=== PATIENT | male | born 1950 | race Caucasian/White ===

== ENCOUNTER 2025-03-24 18:40 | Observation (INO) ==
[2025-03-24 19:10] VITALS: BMI 31.3
--- NOTE | 2025-03-24 19:40 | DR.HTN ---
HPI Time Seen Time Seen by Provider: 03/24/25 19:17 Primary Care Physician Primary Care Physician: Fermin Alarcon HPI Comment HPI Comment: Patient was sent to ER by his nurse practitioner due to his elevated blood pressure after getting procedure at retina specialist with laser. Blood pressure already improving on arrival. Patient states he was told he may have a blood clot because he had elevated D-dimer of 0.8. Patient denies shortness of breath, chest pain, dyspnea on exertion. He does have pedal edema chronically that comes and goes. No history of congestive heart failure. Complaints Chief Complaint:: Patient ambulatory in triage with c/o of high blood pressure. Patient reports that he just left the Retina Specialist in [place] where he has been being seen for a previous cataract surgery. He states that he was told today that he had a bleed behind both of his retina in which the specialist took a laser and cauterized both places. Patient reports that blood pressure has been running higher than normal at home(has a b/P log with him) and he also has 4+ pitting edema in the bilateral lower extremeties, which is a new finding for him. Patient reports that Fermin wanted him to come to the ER due to an elevated D-dimer (0.80) on labs that were performed on 03/22/25 to rule out a PE. COVID-19 Coronavirus risk:travel/contact w/high risk person: No Has patient experienced Coronavirus symptoms: No Source History Provided: Patient Mode of Arrival Mode of Arrival: Ambulatory Timing Onset of Chief Complaint: 03/24/25 PMH PMH Past Medical History: Yes Past Medical History: Asthma, Dyslipidemia, GERD, Hypertension and Hypothyroidism Past Medical History Comment: Pneumothorax Past Surgical History: Yes Surgical History: Ortho Surgery, Tonsillectomy and Other Past Surgical History Comment: Left shoulder, umbilical hernia, cataracts Family History History of Family Medical Conditions: Yes Family Medical History: Cancer Social History Does patient currently use any type of tobacco product: No Have you used tobacco products in the last 12 months: No Type of Tobacco Use: None Does any household member use tobacco: No Alcohol Use: None Do you use any recreational Drugs:: No Lives With: Family Lives Where: Home Travel Risk Coronavirus risk:travel/contact w/high risk person: No Has patient experienced Coronavirus symptoms: No Infectious screening In the last 2 months have you had wt loss of >10#?: NO Have you had fever, night sweats or hemotysis?: No Have you traveled outside the country in the last 6 months?: No Isolation: Standard ROS Review of Systems Constitutional: No Symptoms Reported Eyes: No Symptoms Reported ENTM: No Symptoms Reported Respiratoy: No Symptoms Reported; negative Short of Breath or Wheezing Cardiovascular: No Symptoms Reported and Edema; negative Chest Pain, Palpitations or Syncope Gastrointestinal/Abdominal: No Symptoms Reported Genitourinary: No Symptoms Reported Neurological: No Symptoms Reported Musculoskeletal: No Symptoms Reported Integumentary: No Symptoms Reported Hematologic/Lymphatic: No Symptoms Reported Endocrine: No Symptoms Reported Psychiatric: No Symptoms Reported All Other Systems: Reviewed and Negative PE Vital Signs Vitals: Vital Signs Temperature 98.0 F Pulse Rate 69 Pulse Rate 74 Pulse Rate 72 Pulse Rate 74 Pulse Rate 77 Pulse Rate 76 Pulse Rate 76 Pulse Rate 79 Pulse Rate 82 Respiratory Rate 20 Blood Pressure 166/74 Blood Pressure 186/82 Blood Pressure 159/72 Blood Pressure 164/75 Blood Pressure 161/74 O2 Sat by Pulse Oximetry 94 O2 Sat by Pulse Oximetry 93 O2 Sat by Pulse Oximetry 97 O2 Sat by Pulse Oximetry 95 O2 Sat by Pulse Oximetry 95 O2 Sat by Pulse Oximetry 95 O2 Sat by Pulse Oximetry 95 O2 Sat by Pulse Oximetry 94 O2 Sat by Pulse Oximetry 94 General Limitations: No Limitations General Appearance: Alert and In No Apparent Distress Head Head Exam: Normal Inspection Eyes Eye exam: Normal Appearance ENT ENT Exam: Normal Exam Neck Neck Exam: Normal Inspection Chest Chest Inspection: Normal Inspection Respiratory Respiratory Exam: Normal Lung Sounds Bilat Respiratory Exam: Bilateral: Clear to Auscultation Cardiovascular Cardiovascular Exam: Regular Rate and Normal Rhythm Abdominal Exam Abdominal Exam: Normal Inspection, Normal Bowel Sounds and Soft Extremities Extremities Exam: Edema (Bilateral pedal edema 2+ proximal jacques.) Back Back Exam: Normal Inspection Neurologic Neurological Exam: Alert and Oriented X3 Psychiatric Psychiatric Exam: Normal Affect and Normal Mood Skin Skin Exam: Warm, Dry, Intact and Normal Color COURSE Treatment Treatment: Patient's blood pressure continued to improve through ER stay. Repeat D-dimer was slightly elevated, likely due to age, however bilateral lower extremity ultrasounds were performed and found no evidence of DVT. Patient does have a history of a reaction to contrast with an allergy to iodine and as result CTA was refused by radiology. V/Q scan is not available tomorrow. Due to his recent retinal bleeds I feel it is safer to confirm if there is a blood clot even though unlikely before starting anticoagulation. Therefore we are starting prep for the CTA in the morning. Consultation Called: 22:10 Consultation Comments: Discussed case with Dr. Hilton and he is agreeable to admission so patient can have CTA in the morning after receiving prep. ROR Labs Reviewed Laboratory Results Reviewed?: Yes 03/24/25 19:25 03/24/25 19: Laboratory: WBC 7.2 X10^3/uL (3.6-10.0) 03/24/25 19: RBC 5.07 X10^6/uL (4.7-6.0) 03/24/25 19: Hgb 13.9 g/dL (13.5-18.0) 03/24/25: Hct 42.3 % (42.0-54.0) 03/24/25 19: MCV 83.5 fL (80.0-100.0) 03/24/25: MCH 27.3 pg (27.0-34.0) 03/24/25 19: MCHC 32.8 g/dL (33.0-35.0) L 03/24/25 19: RDW 20.7 % (11.6-16.5) H 03/24/25 19: Plt Count 181 X10^3/uL (150.0-450.0) 03/24/25 19: Plt Count Comment Adequate (ADEQUATE) 03/24/25: MPV 8.5 fL (7.4-11.0) 03/24/25 19: Neut % (Auto) 66.6 % (42.0-75.0) 03/24/25 19: Lymph % (Auto) 23.4 % (21.0-51.0) 03/24/25 19: [place] % (Auto) 7.7 % (0.0-13.0) 03/24/25: Eos % (Auto) 0.2 % (0.9-2.9) L 03/24/25 19: Baso % (Auto) 2.1 % (0.2-1.0) H 03/24/25 19:25 Neut # (Auto) 4.8 x10^3/uL (2.2-4.8) 03/24/25 19:25 Lymph # (Auto) 1.7 X10^3/uL (1.3-2.9) 03/24/25 19:25 [place] # (Auto) 0.6 x10^3/uL (0.3-0.8) 03/24/25 19:25 Eos # (Auto) 0.0 x10^3/uL (0.0-0.2) 03/24/25 19:25 Baso # (Auto) 0.2 X10^3/uL (0.0-0.1) H 03/24/25 19:25 Absolute Nucleated RBC 0.1 /100WBC 03/24/25 19:25 Plt Morphology Comment Normal (NORMAL) 03/24/25 19:25 RBC Morphology Abnormal (NORMAL) 03/24/25 19:25 Anisocytosis 1+ A 03/24/25 19:25 Ovalocytes Present 03/24/25 19:25 D-Dimer 0.92 ug/ml (0.0-0.57) H 03/24/25 19:25 Sodium 143 mmol/L (136-145) 03/24/25 19:25 Corrected Sodium 143 mmol/L (136-145) 03/24/25 19:25 Potassium 3.6 mmol/L (3.5-5.1) 03/24/25 19:25 Chloride 106 mmol/L (98-107) 03/24/25 19:25 Carbon Dioxide 32.3 mmol/L (21-32) H 03/24/25 19:25 BUN 7 mg/dL (7-18) 03/24/25 19:25 Creatinine 1.08 mg/dL (0.70-1.30) 03/24/25 19:25 Est GFR (MDRD) Af Amer > 60 (>60) 03/24/25 19:25 Est GFR (MDRD) Non-Af > 60 (>60) 03/24/25 19:25 Glucose 118 mg/dL (65-99) H 03/24/25 19:25 Calcium 8.7 mg/dL (8.5-10.1) 03/24/25 19:25 Corrected Calcium TNP 03/24/25 19:25 Total Bilirubin 1.20 mg/dL (0.2-1.0) H 03/24/25 19:25 AST 19 Units/L (15-37) 03/24/25 19:25 ALT 25 Units/L (12-78) 03/24/25 19:25 Alkaline Phosphatase 48 Units/L (46-116) 03/24/25 19:25 B-Natriuretic Peptide 56.2 pg/mL (0-79) 03/24/25 19:25 Total Protein 7.0 g/dL (6.4-8.2) 03/24/25 19:25 Albumin 3.7 g/dL (3.4-5.0) 03/24/25 19:25 Globulin 3.3 g/dL (2.5-4.5) 03/24/25 19:25 Albumin/Globulin Ratio 1.1 Ratio (1.1-2.1) 03/24/25 19:25 TSH 3rd Generation 1.885 uIU/mL (0.358-3.74) 03/24/25 19:25 Other Results Comments: Name: LANETTE ORTIZ : 1950 Sex: M Location: ER Order Number(s): [id number] Procedure(s):LOWER EXT VENOUS, BILATERAL Ordering Physician: Jose Hammond Primary Care: FERMIN ALARCON Service Date: 03/24/25 Service Time: 1957 EXAM: LOWER EXT VENOUS, BILATERAL HISTORY: pedal edema, elevated d-dimer.; COMPARISON: No relevant prior studies available. TECHNIQUE: Grayscale and color Doppler images of the lower extremities. FINDINGS: Right lower extremity: Common femoral, femoral, popliteal and posterior tibial veins demonstrate normal compressibility, color Doppler flow, waveforms and augmentation with no filling defects. Soft tissues: Unremarkable Left lower extremity: Common femoral, femoral, popliteal and posterior tibial veins demonstrate normal compressibility, color Doppler flow, waveforms and augmentation with no filling defects. Soft tissues:Unremarkable IMPRESSION: No evidence of deep venous thrombus in either lower extremity. THIS IS AN ELECTRONICALLY VERIFIED FINAL REPORT 03/24/2025 9:48 PM - Electronically signed by Baldev Manuel MD Opioid Opioid Risk Tool Age (Dominic box if 16-45): No History of Preadolescent Sexual Abuse: No Total: 0 Total Score Risk Category: Low Risk Copyright: [facility] predicting aberrant behaviors Discharge Plan Diagnosis Discharge Problem: Elevated d-dimer, Pedal edema Discharge Plan Patient Disposition: 09 ADMITTED INPATIENT Condition: Stable Prescriptions: No Action omeprazole 20 mg capsule,delayed release(DR/EC) 20 mg PO QDAY azelastine 137 mcg (0.1 %) spray,non-aerosol 1 spray intranasal BID Rx Instructions: administer into each nostril prednisone 10 mg tablet 10 mg PO DIRECTED Rx Instructions: see taper instructions Proair Digihaler 90 mcg/actuation aero powdr breath act w/sensor 2 inh inhalation Q6H acetazolamide 500 mg capsule, extended release 500 mg PO ONCE lisinopril 10 mg tablet 10 mg PO BID Qty: 180 3RF ipratropium-albuterol 0.5 mg-3 mg(2.5 mg base)/3 mL solution for nebulization 3 ml INHALATION Q6H PRN Patient Comments: [NO ORIGINAL SIG] famotidine 40 mg tablet 40 mg PO QDAY levothyroxine [Synthroid] 50 mcg tablet 50 mcg PO QDAY zafirlukast 20 mg tablet 20 mg PO BID doxazosin 4 mg tablet 4 mg PO BID testosterone cypionate 200 mg/mL oil 200 mg IM WEEKLY budesonide-formoterol [Symbicort] 160-4.5 mcg/actuation HFA aerosol inhaler 1 inh inhalation DAILY Fasenra Pen 30 mg/mL auto-injector 30 mg SUBCUT MONTHLY Patient Comments: [NO ORIGINAL SIG] [place] 30 mg Tablet See Rx Instructions .ROUTE .COMPLEX Rx Instructions: daily fluticasone propionate [Flonase] 50 mcg/actuation [place],Suspension See Rx Instructions .ROUTE .COMPLEX Rx Instructions: as directed Vitamin B-12 50 mcg Lozenge See Rx Instructions .ROUTE .COMPLEX Rx Instructions: as directed ezetimibe 10 mg Tablet See Rx Instructions .ROUTE .COMPLEX Rx Instructions: daily flaxseed oil-omega 3,6,9 1,300 mg-845 mg -117 mg-117 mg Capsule See Rx Instructions .ROUTE .COMPLEX Rx Instructions: as directed Health Concerns: Post Hospitalization: new medications and changes needed to prevent readmission or further decline. Pt educated and given instructions on all concerns. Plan of Treatment: Continue with present treatment and follow up plan. Pt is to keep follow up appointment as instructed and take medications as ordered. Orders to Discharge Patient Discharge Orders: Transfer (Routine); Ordered 03/24/25 Ordered By: Jose Hammond Follow ups/Referrals Follow ups/Referrals: FERMIN ALARCON [Primary Care Provider, MEDICAL] - 3 days Instructions Stand Alone Forms: Find Help Web Site, Post Hospital Follow Up Care Print Language: KAZAKH
[2025-03-24 19:53] LABS: MEAN PLATELET VOLUME 8.5 fL (7.4-11.0); RED CELL DISTRIBUTION WIDTH 20.7 % (11.6-16.5)
[2025-03-24] MEDS: ZESTRIL TAB 10 MG PO ONE (19:53)
[2025-03-24 19:54] LABS: COR NA(FOR HYPERGLY) 143 mmol/L (136-145); CREATININE 1.08 mg/dL (0.70-1.30); TSH (3RD GENERATION) 1.885 uIU/mL (0.358-3.74); eGFR NON BLACK RACES > 60 (>60)
[2025-03-24 19:59] LABS: PLATELET MORPHOLOGY COMMENT NORMAL (NORMAL)
--- NOTE | 2025-03-24 21:51 | VAS ---
EXAM: LOWER EXT VENOUS, BILATERAL HISTORY: pedal edema, elevated d-dimer.; COMPARISON: No relevant prior studies available. TECHNIQUE: Grayscale and color Doppler images of the lower extremities. FINDINGS: Right lower extremity: Common femoral, femoral, popliteal and posterior tibial veins demonstrate normal compressibility, color Doppler flow, waveforms and augmentation with no filling defects. Soft tissues: Unremarkable Left lower extremity: Common femoral, femoral, popliteal and posterior tibial veins demonstrate normal compressibility, color Doppler flow, waveforms and augmentation with no filling defects. Soft tissues:Unremarkable IMPRESSION: No evidence of deep venous thrombus in either lower extremity. THIS IS AN ELECTRONICALLY VERIFIED FINAL REPORT 03/24/2025 9:48 PM - Electronically signed by Baldev Manuel MD
[2025-03-24] MEDS: PREDNISONE TAB 10 MG PO ONE ×2 (22:00→22:41)
[2025-03-24] MEDS: APRESOLINE INJ 20 MG VIAL IVP ONE (23:04)
[2025-03-25] MEDS: PREDNISONE TAB 10 MG PO ONE ×3 (03:54→09:46)
[2025-03-25] MEDS: K-DUR TAB 20 MEQ PO ONE (05:06)
[2025-03-25 05:10] LABS: MEAN PLATELET VOLUME 8.9 fL (7.4-11.0); RED CELL DISTRIBUTION WIDTH 21.1 % (11.6-16.5)
[2025-03-25 05:25] LABS: COR CA(FOR HYPOALB) 9.1 mg/dL (8.5-10.1); COR NA(FOR HYPERGLY) 142 mmol/L (136-145); CREATININE 0.89 mg/dL (0.70-1.30); PLATELET MORPHOLOGY COMMENT NORMAL (NORMAL); eGFR NON BLACK RACES > 60 (>60)
[2025-03-25] MEDS: CONSULT PHARMACY - POTASSIUM & MAGNESIUM XX SCH (07:04)
[2025-03-25 07:16] VITALS: RESP 19
[2025-03-25] MEDS: APRESOLINE INJ 20 MG VIAL IVP PRN (07:20)
[2025-03-25] MEDS: PULMICORT NEB TX 0.5 MG NEB SCH (08:38)
[2025-03-25] MEDS ORDERED: SYMBICORT INH 160/4.5 mcg IN SCH (09:00)
[2025-03-25] MEDS: BENADRYL CAP 50 MG PO ONE (09:46)
--- NOTE | 2025-03-25 11:38 | CT ---
EXAM: CT PULMONARY ANGIOGRAM CHEST WITH CONTRAST (PE PROTOCOL) HISTORY: elevated d-dimer; COMPARISON: None. TECHNIQUE: Axial CT images were obtained through the chest after the intravenous administration of contrast. Coronal reformatted images were included. Maximum intensity projection (MIP) images were performed per pulmonary angiogram protocol. Informed written consent was obtained prior to contrast administration. All CT scans at this facility use dose modulation, iterative reconstruction, and/or weight based dosing when appropriate to reduce radiation dose to as low as reasonably achievable. FINDINGS: HEART AND PULMONARY ARTERIES: No evidence of right ventricular strain. No filling defects in the pulmonary arteries to suggest emboli. SUPPORT DEVICES: None LYMPH NODES: No pathologically enlarged nodes. LUNGS AND PLEURA: Lungs show areas of subsegmental atelectasis in the lung bases. Azygous fissure. AIRWAYS: Normal UPPER ABDOMEN: Normal BONES: Normal IMPRESSION: Mild cardiomegaly. No evidence of pulmonary embolism. Areas of subsegmental atelectasis of the lung bases. THIS IS AN ELECTRONICALLY VERIFIED FINAL REPORT 03/25/2025 11:35 AM - Electronically signed by Zion Murphy MD
[2025-03-25 11:42] VITALS: BP 138/64; PULSE 70; TEMP 97.9; O2SAT 97
[2025-03-25] MEDS: CARDURA PO SCH (12:07)
[2025-03-25] MEDS: PEPCID TAB 40 MG PO SCH (12:07)
[2025-03-25] MEDS: ZETIA TAB 10 MG PO SCH (12:07)
[2025-03-25] MEDS: ZESTRIL TAB 10 MG PO SCH (12:07)
--- NOTE | 2025-03-25 13:58 | DR.SSS ---
SHORT STAY SUMMARY Admission Date Date of Admission: 03/24/25 Discharge Date Discharge Date: 03/25/25 Admission Diagnoses Admission Diagnoses: elevated d-dimer Discharge Diagnoses Discharge Diagnoses: same Chief Complaint Chief Complaint: abnormal labs with PCP (d-dimer) History of Present Illness History of Present Illness: HPI: PCP valdez D-dimer due to leg swelling earlier this week. Was at retina specialists getting lasered due to AMD when advised to go to ER due to elevated D-dimer. D-dimer in the ER was 0.92 with BLE edema, no dyspnea, no chest pain, and no hemoptysis or cough. ROS: 12 point ROS negative except as noted in HPI. Vitals reviewed. PE: Well-developed, well-nourished male in no acute distress. Head NCAT. Extraocular is grossly normal. Hearing intact conversation. Neck full range of motion with trachea midline. Heart regular rate and rhythm. Lungs with fair air movement but diminished. Belly soft, nontender, nondistended with bowel sounds present. Moves all extremities equally well. Mood & affect are appropriate. Past Medical History Past Medical History: Asthma, Dyslipidemia, GERD, Hypertension and Hypothyroidism Past Surgical History Surgical History: Ortho Surgery, Tonsillectomy and Other Allergies Allergies Allergy/AdvReac Type Severity Reaction Status Date / Time aspirin Allergy Verified 03/08/25 11:34 cefaclor (From Ceclor) Allergy Verified 03/08/25 11:34 iodine Allergy Verified 03/08/25 11:34 levofloxacin (From Levaquin) Allergy Verified 03/08/25 11:34 Medications Home Medications: aspirin Allergy (Verified 03/08/25 11:34) cefaclor (From Ceclor) Allergy (Verified 03/08/25 11:34) iodine Allergy (Verified 03/08/25 11:34) levofloxacin (From Levaquin) Allergy (Verified 03/08/25 11:34) Family History Family Medical History: Cancer and Hypertension Social History Does patient currently use any type of tobacco product: No Have you used tobacco products in the last 12 months: No Type of Tobacco Use: None Does any household member use tobacco: No Alcohol Use: None Drug Use: None Physical Exam Vital Signs: Last Vital Signs Temp 97.8 F 03/25/25 07:16 Pulse 75 03/25/25 08:40 Resp 19 03/25/25 07:16 BP 167/76 03/25/25 07:16 Pulse Ox 96 03/25/25 08:40 O2 Del Method Room Air 03/25/25 08:40 FiO2 28 05/14/24 08:22 Labs Labs: Laboratory Last Values WBC 7.0 X10^3/uL (3.6-10.0) 03/25/25 04:13 RBC 4.97 X10^6/uL (4.7-6.0) 03/25/25 04:13 Hgb 13.6 g/dL (13.5-18.0) 03/25/25 04:13 Hct 41.2 % (42.0-54.0) L 03/25/25 04:13 MCV 82.9 fL (80.0-100.0) 03/25/25 04:13 MCH 27.3 pg (27.0-34.0) 03/25/25 04:13 MCHC 33.0 g/dL (33.0-35.0) 03/25/25 04:13 RDW 21.1 % (11.6-16.5) H 03/25/25 04:13 Plt Count 177 X10^3/uL (150.0-450.0) 03/25/25 04:13 Plt Count Comment Adequate (ADEQUATE) 03/25/25 04:13 MPV 8.9 fL (7.4-11.0) 03/25/25 04:13 Neut % (Auto) 76.8 % (42.0-75.0) H 03/25/25 04:13 Lymph % (Auto) 17.0 % (21.0-51.0) L 03/25/25 04:13 [place] % (Auto) 5.7 % (0.0-13.0) 03/25/25 04:13 Eos % (Auto) 0.0 % (0.9-2.9) L 03/25/25 04:13 Baso % (Auto) 0.5 % (0.2-1.0) 03/25/25 04:13 Neut # (Auto) 5.4 x10^3/uL (2.2-4.8) H 03/25/25 04:13 Lymph # (Auto) 1.2 X10^3/uL (1.3-2.9) L 03/25/25 04:13 [place] # (Auto) 0.4 x10^3/uL (0.3-0.8) 03/25/25 04:13 Eos # (Auto) 0.0 x10^3/uL (0.0-0.2) 03/25/25 04:13 Baso # (Auto) 0.0 X10^3/uL (0.0-0.1) 03/25/25 04:13 Absolute Nucleated RBC 0.1 /100WBC 03/25/25 04:13 Plt Morphology Comment Normal (NORMAL) 03/25/25 04:13 RBC Morphology Abnormal (NORMAL) 03/25/25 04:13 Anisocytosis 1+ A 03/25/25 04:13 Ovalocytes Present 03/25/25 04:13 D-Dimer 0.92 ug/ml (0.0-0.57) H 03/24/25 19:25 Sodium 141 mmol/L (136-145) 03/25/25 04:13 Corrected Sodium 142 mmol/L (136-145) 03/25/25 04:13 Potassium 4.1 mmol/L (3.5-5.1) 03/25/25 04:13 Chloride 106 mmol/L (98-107) 03/25/25 04:13 Carbon Dioxide 28.7 mmol/L (21-32) 03/25/25 04:13 BUN 7 mg/dL (7-18) 03/25/25 04:13 Creatinine 0.89 mg/dL (0.70-1.30) 03/25/25 04:13 Est GFR (MDRD) Af Amer > 60 (>60) 03/25/25 04:13 Est GFR (MDRD) Non-Af > 60 (>60) 03/25/25 04:13 Glucose 140 mg/dL (65-99) H 03/25/25 04:13 Calcium 8.5 mg/dL (8.5-10.1) 03/25/25 04:13 Corrected Calcium 9.1 mg/dL (8.5-10.1) 03/25/25 04:13 Total Bilirubin 0.70 mg/dL (0.2-1.0) 03/25/25 04:13 AST 21 Units/L (15-37) 03/25/25 04:13 ALT 21 Units/L (12-78) 03/25/25 04:13 Alkaline Phosphatase 46 Units/L (46-116) 03/25/25 04:13 B-Natriuretic Peptide 56.2 pg/mL (0-79) 03/24/25 19:25 Total Protein 6.6 g/dL (6.4-8.2) 03/25/25 04:13 Albumin 3.3 g/dL (3.4-5.0) L 03/25/25 04:13 Globulin 3.3 g/dL (2.5-4.5) 03/25/25 04:13 Albumin/Globulin Ratio 1.0 Ratio (1.1-2.1) L 03/25/25 04:13 TSH 3rd Generation 1.885 uIU/mL (0.358-3.74) 03/24/25 19:25 Assessment/Plan (1) Elevated d-dimer: (2) Pulmonary hypertension: (3) Hypertension: (4) Hyperlipidemia: Hospital Course Hospital Course: Patient brought into op status for CTA given iodine/contrast allergy. He was premedicated and underwent CTA of the chest. Vitals, labs, patient remained stable overnight through the day. CTA was negative for VTE. BLE Dopplers were negative last night in the ER. Patient reporting he feels well would like to go home. No medication changes. D-dimer scoring on MD Calc with low likelihood of VTE. Discharge Medications Discharge Medications: Prescriptions: Discharge Plan Discharge Plan Patient Disposition: 01 HOME, SELF-CARE Condition: Stable Health Concerns: Post Hospitalization: new medications and changes needed to prevent readmission or further decline. Pt educated and given instructions on all concerns. Plan of Treatment: Continue with present treatment and follow up plan. Pt is to keep follow up appointment as instructed and take medications as ordered. Prescription drug monitoring program results: PDMP reviewed and no concerns identified Prescriptions: Continued omeprazole 20 mg capsule,delayed release(DR/EC) 20 mg PO QDAY azelastine 137 mcg (0.1 %) spray,non-aerosol 1 spray intranasal BID Rx Instructions: administer into each nostril prednisone 10 mg tablet 10 mg PO DIRECTED Rx Instructions: see taper instructions Proair Digihaler 90 mcg/actuation aero powdr breath act w/sensor 2 inh inhalation Q6H acetazolamide 500 mg capsule, extended release 500 mg PO ONCE lisinopril 10 mg tablet 10 mg PO BID Qty: 180 3RF ipratropium-albuterol 0.5 mg-3 mg(2.5 mg base)/3 mL solution for nebulization 3 ml INHALATION Q6H PRN Patient Comments: [NO ORIGINAL SIG] famotidine 40 mg tablet 40 mg PO QDAY levothyroxine [Synthroid] 50 mcg tablet 50 mcg PO QDAY zafirlukast 20 mg tablet 20 mg PO BID doxazosin 4 mg tablet 4 mg PO BID testosterone cypionate 200 mg/mL oil 200 mg IM WEEKLY budesonide-formoterol [Symbicort] 160-4.5 mcg/actuation HFA aerosol inhaler 1 inh inhalation DAILY Fasenra Pen 30 mg/mL auto-injector 30 mg SUBCUT MONTHLY Patient Comments: [NO ORIGINAL SIG] fexofenadine 30 mg Tablet See Rx Instructions .ROUTE .COMPLEX Rx Instructions: daily fluticasone propionate 50 mcg/actuation [place],Suspension See Rx Instructions .ROUTE .COMPLEX Rx Instructions: as directed Vitamin B-12 50 mcg Lozenge See Rx Instructions .ROUTE .COMPLEX Rx Instructions: as directed ezetimibe 10 mg Tablet See Rx Instructions .ROUTE .COMPLEX Rx Instructions: daily flaxseed oil-omega 3,6,9 1,300 mg-845 mg -117 mg-117 mg Capsule See Rx Instructions .ROUTE .COMPLEX Rx Instructions: as directed Orders to Discharge Patient Discharge Orders: Discharge (Routine); Ordered 03/25/25 Ordered By: Casimiro Hilton Follow ups/Referrals Follow ups/Referrals: VIPUL GAMA [Primary Care Provider, MEDICAL] - 3 days Instructions Instructions: Peripheral Edema, Hypertension Stand Alone Forms: Excuse From Work or School, Find Help Web Site, Post Hospital Follow Up Care Print Language: MALTESE
== END 2025-03-25 12:26 | disposition home or self-care (01) ==
LOC: ER 18:40 → MED/SURG 18:40
PROVIDERS: ADMIT Family Medicine; ATTEND Nurse Practitioner Family
DX: R79.1 Abnormal coagulation profile; E03.8 Other specified hypothyroidism; K21.9 Gastro-esophageal reflux disease without esophagitis; E78.5 Hyperlipidemia, unspecified; R60.0 Localized edema; I27.20 Pulmonary hypertension, unspecified; R73.09 Other abnormal glucose; E80.6 Other disorders of bilirubin metabolism; R79.89 Other specified abnormal findings of blood chemistry; I10 Essential (primary) hypertension